=== PATIENT | female | born 1955 | race Caucasian/White ===

== ENCOUNTER 2022-10-02 11:27 | Day surgery (SDC) | payer BC, MEDICAID ==
[~2022-10-02 11:27] MED LIST: Metoclopramide 10 MG/2 ML SDV IV PRN
[2022-10-02] MEDS: Sodium Chloride 0.9% 1,000 ML IV SCH (13:00)
[2022-10-02] MEDS ORDERED: Propofol 1,000 MG/100 ML SDV ONE (14:30)
== END 2022-10-02 15:35 | disposition home or self-care (01) ==
LOC: LB.SDS 11:27
PROVIDERS: ATTEND Surgery
DX: K57.30 Diverticulosis of large intestine without perforation or abscess without bleeding (principal); L30.9 Dermatitis, unspecified; K21.9 Gastro-esophageal reflux disease without esophagitis; M19.079 Primary osteoarthritis, unspecified ankle and foot; Z88.0 Allergy status to penicillin; Z88.5 Allergy status to narcotic agent; Z79.899 Other long term (current) drug therapy; Z87.891 Personal history of nicotine dependence
CPT/HCPCS: 45378; J2704; J7030